=== PATIENT | male | born 1990 | race Caucasian/White ===

== ENCOUNTER 2022-03-03 22:15 | Emergency (ER) | payer OTHER | END 2022-03-03 23:52 | disposition left against medical advice (07) | LOC: ER1 22:15 | DX: R20.2 Paresthesia of skin (principal); Z79.82 Long term (current) use of aspirin; Z88.1 Allergy status to other antibiotic agents | CPT/HCPCS: 99283 ==

== ENCOUNTER → 2022-04-11 | Outpatient (CLI) | payer OTHER | LOC: KOH-I 14:06 | DX: R06.02 Shortness of breath (principal) | CPT/HCPCS: 71046 ==